=== PATIENT | female | born 1995 | race Caucasian/White ===

== ENCOUNTER → 2019-07-04 23:45 | Observation (INO) ==
[~2019-07-04 23:45] MED LIST: FLU Vac QV 19-20 (6Month+)/PF 0.5 ML SYRINGE IM ONE
== END | disposition home or self-care (01) ==
LOC: 1NENULAB
PROVIDERS: ADMIT Obstetrics & Gynecology; ATTEND Obstetrics & Gynecology

== ENCOUNTER → 2019-07-26 12:12 | Observation (INO) ==
[2019-07-26 10:57] VITALS: BP 114/65
[2019-07-26 11:17] LABS: Hematocrit 39.6 % (35.3-44.9); Hemoglobin 12.6 g/dL (11.5-15.4); Mean Corpuscular HGB Conc 31.8 g/dL (31.6-35.5); Mean Corpuscular Hemoglobin 28.9 pg (28.0-33.3); Mean Corpuscular Volume 90.8 fL (83.0-100.0); Mean Platelet Volume 9.9 fL (9.4-12.4); Platelet Count 287 K/mcL (140-400); Red Blood Count 4.36 M/mcL (3.82-4.97); Red Cell Distribution Width 13.2 % (11.5-14.5); White Blood Count 10.7 K/mcL (4.3-11.1)
[2019-07-26 11:20] LABS: Bilirubin,Urine Negative (Negative); Blood,Urine Negative (Negative); Clarity,Urine Clear (Clear); Color,Urine Yellow (Yellow); Glucose,Urine (UA) Normal (Normal); Ketones,Urine Negative (Negative); Leukocyte Esterase,Urine Negative (Negative); Nitrite,Urine Negative (Negative); Protein,Urine Negative (Neg-Trace); Specific Gravity,Urine 1.014 (1.010-1.025); Urobilinogen,Urine Normal (Normal)
[~2019-07-26 12:12] MED LIST changes: -FLU Vac QV 19-20 (6Month+)/PF 0.5 ML SYRINGE IM ONE; +Ringers Solution, Lactated 1,000 ML IVC ONE
== END | disposition home or self-care (01) ==
LOC: 1NENULAB
PROVIDERS: ADMIT Obstetrics & Gynecology; ATTEND Obstetrics & Gynecology

== ENCOUNTER 2019-12-30 05:45 | Inpatient (IN) ==
[2019-12-30] MEDS ORDERED: Metoclopramide 10 MG/2 ML VIAL IVP ONE (05:56)
[2019-12-30] MEDS ORDERED: Ringers Solution, Lactated 1,000 ML IVC ONE (05:56)
[2019-12-30] MEDS ORDERED: CeFAZolin Syr 3,000MG/30 ML 3,000 MG/30 ML SYRINGE IVPB ONE (05:56)
[2019-12-30] MEDS ORDERED: Famotidine 20 MG/2 ML VIAL IVP ONE (05:56)
[2019-12-30 06:38] LABS: Basophils # 0.1 K/mcL (0.0-0.2); Basophils % 0.4 %; Eosinophils # 0.2 K/mcL (0.0-0.6); Eosinophils % 1.1 %; Hematocrit 35.9 % (35.3-44.9); Immature Granulocytes % 1.7 % (0-4); Lymphocytes # 3.1 K/mcL (0.6-4.6); Lymphocytes % 20.9 %; Mean Corpuscular HGB Conc 30.6 g/dL (31.6-35.5); Mean Corpuscular Hemoglobin 27.6 pg (28.0-33.3); Mean Platelet Volume 9.2 fL (9.4-12.4); Monocytes # 0.6 K/mcL (0.0-1.3); Neutrophils # 10.7 K/mcL (1.6-8.9); Platelet Count 341 K/mcL (140-400); Red Blood Count 3.99 M/mcL (3.82-4.97); Red Cell Distribution Width 14.6 % (11.5-14.5); Segmented Neutrophils % 71.9 %; White Blood Count 14.9 K/mcL (4.3-11.1)
[2019-12-30] MEDS ORDERED: Ondansetron 4 MG/2 ML VIAL IVP PRN ×2 (07:25→13:04)
[2019-12-30] MEDS ORDERED: *HR* OxyCODONE Immed Rel 5 MG TABLET PO PRN (07:25)
[2019-12-30] MEDS ORDERED: *HR* Promethazine 25 MG/ML VIAL IVP PRN (07:25)
[2019-12-30] MEDS ORDERED: Ringers Solution, Lactated 1,000 ML ONE ×3 (07:27→15:35)
[2019-12-30] MEDS ORDERED: *HR* FentaNYL (PF) 100 MCG/2 ML VIAL ONE (07:33)
[2019-12-30] MEDS ORDERED: *HR* Morphine Sulfate/PF 10 MG/10 ML AMPUL ONE (07:33)
[2019-12-30] MEDS ORDERED: *HR* Phenylephrine 10 MG/ML VIAL ONE (07:34)
[2019-12-30] MEDS ORDERED: EPHEDrine 50 MG/ML VIAL ONE (07:35)
[2019-12-30] MEDS ORDERED: Acetaminophen IV 1,000 MG/100 ML INFUS..BTL ONE (08:18)
[2019-12-30] MEDS ORDERED: Ondansetron 4 MG/2 ML VIAL ONE (08:18)
[2019-12-30] MEDS ORDERED: Ketorolac 30 MG/ML VIAL ONE (08:18)
[2019-12-30] MEDS ORDERED: *HR* Oxytocin 10 UNIT/ML VIAL IM ONE (08:19)
[2019-12-30 08:28] LABS: Amphetamine Screen,Urine Negative ng/mL (Cutoff=1000); Barbiturate Screen,Urine Positive ng/mL (Cutoff=200); Benzodiazepines Screen,Urine Negative ng/mL (Cutoff=200); Cannabinoid Screen,Urine Negative ng/mL (Cutoff = 50); Cocaine Screen,Urine Negative ng/mL (Cutoff= 300); Opiate Screen,Urine Negative ng/mL (Cutoff=300); Phencyclidine Screen,Urine Negative ng/mL (Cutoff=25)
[2019-12-30] MEDS ORDERED: Ringers Solution, Lactated 1,000 ML IVC SCH ×2 (10:45→16:45)
[2019-12-30] MEDS ORDERED: Simethicone 80 MG TAB.CHEW PO PRN (13:04)
[2019-12-30] MEDS ORDERED: Sennosides 8.6 MG TABLET PO PRN (13:04)
[2019-12-30] MEDS ORDERED: Oxytocin 20 units/ LR 1000 mL 20 UNIT/1,000 ML BAG IVC SCH (13:04)
[2019-12-30] MEDS ORDERED: *HR* OxyCODONE/APAP 5/325 TABLET PO PRN (13:04)
[2019-12-30] MEDS ORDERED: Metoclopramide 10 MG/2 ML VIAL IVP PRN (13:04)
[2019-12-30] MEDS ORDERED: NON-FORMULARY MEDICATION 1 EACH EACH (Prenatal 19 Tablet 1 TAB) PO SCH (13:04)
[2019-12-30] MEDS ORDERED: Furosemide 20 MG/2 ML VIAL IVP ONE (13:36)
[2019-12-30] MEDS: Prenatal Vit/FA 1 EACH TABLET PO SCH (14:20)
[2019-12-30] MEDS: metroNIDAZOLE 500 MG TABLET PO SCH ×3 (14:20→21:09)
[2019-12-30] MEDS ORDERED: Ringers Solution, Lactated 500 ML IVC SCH (15:30)
[2019-12-30] MEDS: CEFAZOLIN IVP SCH ×2 (15:49→23:30)
[2019-12-30] MEDS: WATER FOR INJ IVP SCH ×2 (15:49→23:30)
[2019-12-30] MEDS: Ibuprofen 600 MG TABLET PO PRN ×2 (17:22→23:30)
[2019-12-30] MEDS: *HR* Enoxaparin 150 MG/ML SYRINGE SQ SCH (17:23)
[2019-12-31 06:20] LABS: Basophils # 0.1 K/mcL (0.0-0.2); Basophils % 0.4 %; Eosinophils # 0.1 K/mcL (0.0-0.6); Eosinophils % 0.5 %; Hematocrit 32.1 % (35.3-44.9); Hemoglobin 9.5 g/dL (11.5-15.4); Lymphocytes # 2.7 K/mcL (0.6-4.6); Lymphocytes % 19.9 %; Mean Corpuscular HGB Conc 29.6 g/dL (31.6-35.5); Mean Corpuscular Hemoglobin 27.5 pg (28.0-33.3); Mean Platelet Volume 9.5 fL (9.4-12.4); Monocytes # 0.6 K/mcL (0.0-1.3); Monocytes % 4.6 %; Platelet Count 281 K/mcL (140-400); Red Blood Count 3.45 M/mcL (3.82-4.97); Red Cell Distribution Width 14.9 % (11.5-14.5); Segmented Neutrophils % 73.6 %; White Blood Count 13.6 K/mcL (4.3-11.1)
[2019-12-31] MEDS: *HR* Enoxaparin 150 MG/ML SYRINGE SQ SCH ×2 (06:48→17:57)
[2019-12-31] MEDS: Ibuprofen 600 MG TABLET PO PRN ×3 (06:51→21:03)
[2019-12-31] MEDS: WATER FOR INJ IVP SCH (07:46)
[2019-12-31] MEDS: CEFAZOLIN IVP SCH (07:46)
[2019-12-31] MEDS: Prenatal Vit/FA 1 EACH TABLET PO SCH (07:47)
[2019-12-31] MEDS: metroNIDAZOLE 500 MG TABLET PO SCH ×3 (09:23→21:02)
[2019-12-31] MEDS: Acetaminophen 325 MG TABLET PO PRN ×2 (09:26→17:57)
[2020-01-01] MEDS: Ibuprofen 600 MG TABLET PO PRN (03:12)
[2020-01-01] MEDS: *HR* Enoxaparin 150 MG/ML SYRINGE SQ SCH (06:04)
[2020-01-01 08:17] VITALS: BP 126/63
[2020-01-01] MEDS: Acetaminophen 325 MG TABLET PO PRN (08:34)
[2020-01-01] MEDS: Prenatal Vit/FA 1 EACH TABLET PO SCH (08:34)
== END 2020-01-01 13:44 | disposition home or self-care (01) | DRG 540 ==
LOC: 1NENULAB 05:49 → 1NENUOBS 11:07
PROVIDERS: ADMIT Obstetrics & Gynecology; ATTEND Obstetrics & Gynecology